=== PATIENT | male | born 1945 | race American Indian/Alaskan Native ===

== ENCOUNTER 2021-08-09 17:21 | Observation (INO) | payer MEDICARE ==
--- NOTE | 2021-08-09 17:56 | Emergency Department Report ---
ED Syncope HPI - General Stated Complaint: STEMI Time Seen by Provider: 08/09/21 17:37 Source: patient, EMS Exam Limitations: no limitations - History of Present Illness Initial Comments: 75-year-old male with no significant past medical history presents to the hospital via EMS after syncopal episode. Patient states he went to the bathroom, sat on the edge of the tub, became diaphoretic and lightheaded and fell out in the tub. Positive LOC. Patient was described as slightly sluggish according to family at the scene as per EMS. EMS reports that patient is oriented x4. Accu-Chek 136. Patient has felt fine all day but has not had much to eat. He only ate Halloween candy. He denies headache, chest pain, shortness of breath, infectious symptoms, nausea, vomiting, melena, hematochezia, diarrh ea, smoking, history of PE/DVT, cardiac history, or family history of CAD. Patient is immunized for Covid. patient felt fine today up until this episode. He complains of still feeling a little weak EMS felt that the field EKG represent ST elevation [place] therefore code STEMI called. Once they presented to physical EKG and repeat EKG in the ED showed signs of early repolarization without ST elevation [place] code STEMI was canceled. EKG and case was discussed with interventional Dr. Rasmussen. - Related Data Allergies/Adverse Reactions: Allergies No Known Allergies Allergy (Verified 08/09/21 17:48) ED Review of Systems ROS: Stated complaint: STEMI Other details as noted in HPI Comment: All other systems reviewed and negative ED Course Vital Signs 08/09/21 08/09/21 08/09/21 17:35 17:46 18:00 Pulse Rate 63 67 Respiratory 20 12 Rate Blood Pressure 146/72 146/72 146/72 O2 Sat by Pulse 96 95 Oximetry 08/09/21 08/09/21 08/09/21 18:07 18:15 18:31 Pulse Rate 75 66 Respiratory 14 12 14 Rate Blood Pressure 146/72 O2 Sat by Pulse 99 98 97 Oximetry 08/09/21 08/09/21 08/09/21 18:45 19:00 19:15 Pulse Rate 89 72 70 Respiratory 17 17 13 Rate Blood Pressure 146/72 146/72 O2 Sat by Pulse 97 98 99 Oximetry 08/09/21 08/09/21 08/09/21 19:31 19:45 20:01 Pulse Rate 60 60 60 Respiratory 13 13 13 Rate Blood Pressure O2 Sat by Pulse 97 97 97 Oximetry - Consultations Consultation #1: 08/09/[address] Rasmussen including EKG ED Medical Decision Making - Lab Data Result diagrams: 08/09/21 17:40 08/09/21 17:40 - EKG Data -: EKG Interpreted by Ga EKG shows normal: sinus rhythm, ST-T waves (No STEMI, early repol) - Radiology Data Radiology results: report reviewed CHEST 1 VIEW, 08/09/2021 5:58 PM CLINICAL INFORMATION/INDICATION: Syncope COMPARISON: None. FINDINGS: SUPPORT DEVICES: None. HEART: The cardiac silhouette is normal in size. LUNGS/PLEURA: The lungs are clear of focal airspace disease or significant pleural effusion. ADDITIONAL FINDINGS: No additional acute findings. IMPRESSION: 1. No evidence of acute cardiopulmonary process. - Medical Decision Making Differential includes but not limited to pulmonary embolism, arrhythmia, anemia, vasovagal, dehydration, infection 75-year-old male presents to the hospital with syncopal episode. Patient admits only in [facility] all day. Suspect volume depletion versus vasovagal as a possible cause. Labs unremarkable. EKG with signs of repolarization. Awaiting urine collection at disposition. Patient treated with IV fluids and inform nurse to feed patient. Nonfocal neuro exam. Patient still feels little weak. plan to admit for observation Critical Care Time: No Critical care attestation.: If time is entered above; I have spent that time in minutes in the direct care of this critically ill patient, excluding procedure time. ED Disposition Clinical Impression: Syncope Disposition: 09 ADMITTED INPATIENT Is pt being admited?: Yes Condition: Stable Instructions: Syncope (ED) Time of Disposition: 21:29 (Dr. Del Rio/hospitalist) - Assessment Assessment Interval: Baseline - Level of Consciousness 1a. Level of Consciousness: alert/keenly responsive - LOC Questions 1b. LOC Questions: answers both correctly - LOC Command 1c. LOC Commands: performs tasks correctly - Best Gaze 2. Best Gaze: normal - Visual 3. Visual: no visual loss - Facial Palsy 4. Facial Palsy: normal symmetrical movement - Motor Arm 5a. Motor Arm Left: no drift 5b. Motor Arm Right: no drift - Motor Leg 6a. Motor Leg Left: no drift 6b. Motor Leg Right: no drift - Limb Ataxia 7. Limb Ataxia: absent - Sensory 8. Sensory: normal - Best Language 9. Best Language: no aphasia - Dysarthria 10. Dysarthria: normal - Extinction and Inattention 11. Extinction/Inattention: no abnormality - Scoring Total Score: 0 Stroke Severity: No Stroke Symptoms
--- NOTE | 2021-08-09 18:06 | XRay Report ---
CHEST 1 VIEW, 08/09/2021 5:58 PM CLINICAL INFORMATION/INDICATION: Syncope COMPARISON: None. FINDINGS: SUPPORT DEVICES: None. HEART: The cardiac silhouette is normal in size. LUNGS/PLEURA: The lungs are clear of focal airspace disease or significant pleural effusion. ADDITIONAL FINDINGS: No additional acute findings. IMPRESSION: 1. No evidence of acute cardiopulmonary process. Signer Name: Radha Haas MD Signed: 08/09/2021 6:01 PM Workstation Name: [id number]
[2021-08-09 18:16] LABS: Basophils % (Auto) 0.8 % (0.0-1.8); Eosinophils # (Auto) 0.1 K/mm3 (0.0-0.4); Hematocrit 42.3 % (35.5-45.6); Lymphocytes # (Auto) 1.1 K/mm3 (1.2-5.4); Lymphocytes % (Auto) 24.8 % (13.4-35.0); Mean Corpuscular HGB Conc 33 % (32-34); Mean Corpuscular Volume 106 fl (84-94); Monocytes # (Auto) 0.5 K/mm3 (0.0-0.8); Monocytes % (Auto) 11.7 % (0.0-7.3); Platelet Count 200 K/mm3 (140-440); Red Blood Count 3.99 M/mm3 (3.65-5.03); Red Cell Distribution Width 12.6 % (13.2-15.2)
[2021-08-09 18:26] LABS: INR 0.96 (0.87-1.13)
[2021-08-09 19:19] LABS: Alanine Aminotransferase 28 units/L (7-56); Albumin 3.8 g/dL (3.9-5); BUN/Creatinine Ratio 13; Blood Urea Nitrogen 14 mg/dL (9-20); Hemolysis Index 4
--- NOTE | 2021-08-09 20:04 | Cat Scan Report ---
CT head/brain wo con INDICATION: Syncope. TECHNIQUE: Routine CT head. All CT scans at this location are performed using CT dose reduction for A MICHAEL by means of automated exposure control. COMPARISON: None. FINDINGS: Intracranial: Schwartz-white matter differentiation is maintained. No intracranial hemorrhage. No extra a xial collection. No hydrocephalus. No herniation. Periventricular and centrum semiovale white matter hypoattenuation most consistent with sequela of chronic microvascular disease. Sinuses: Paranasal sinuses and mastoid air cells are essentially clear. Orbits: Globes are intact. Calvarium: No acute fracture. IMPRESSION: 1. No acute intracranial abnormality. Signer Name: Kaleb Jimenez MD Signed: 08/09/2021 8:00 PM Workstation Name: [id number]
[2021-08-09] MEDS ORDERED: SODIUM CHLORIDE 0.9% 1000 ML 1,000 ML IV ONE (20:38)
[2021-08-09] MEDS ORDERED: ACETAMINOPHEN 325 MG TAB PO PRN (21:39)
[2021-08-09] MEDS ORDERED: MORPHINE 2 MG/1 ML INJ IV PRN (21:39)
[2021-08-09] MEDS ORDERED: traMADol 50 MG TAB PO PRN (21:39)
--- NOTE | 2021-08-09 21:47 | History and Physical Report ---
History of Present Illness Date of examination: 08/09/21 Date of admission: 08/09/21 Chief complaint: syncope History of present illness: 75-year-old male with no significant past medical history was brought emergency room because of syncope. Patient states he went to the bathroom, sat on the edge of the tub, became diaphoretic and lightheaded and fell out in the tub. Positive LOC. Patient was described as slightly sluggish according to family at the scene as per EMS. patient is oriented x3. Accu-Chek 136. Patient has felt fine all day but has not had much to eat. He only ate Halloween candy. He denies headache, chest pain, shortness of breath, infectious symptoms, nausea, vomiting, melena, hematochezia, diarrhea. Patient is immunized for Covid. patient felt fine today up until this episode. He complains of still feeling a little weak EMS felt that the field EKG represent ST elevation [place] difficult STEMI called. Once they presented to physical EKG and repeat EKG in the ED showed signs of early repole without ST elevation [place] code STEMI was canceled. EKG and case was discussed with interventional Dr. Rasmussen. Initial cardiac enzyme is negative. We will put the patient in telemetry. We will monitor the patient closely. Consult cardiology for evaluation. Medications and Allergies Allergies Allergy/AdvReac Type Severity Reaction Status Date / Time No Known Allergies Allergy Verified 08/09/21 17:48 Active Meds: Active Medications Sodium Chloride (Nacl 0.9% 1000 Ml) 1,000 mls @ 250 mls/hr IV ONCE ONE Stop: 08/10/21 00:37 Review of Systems All systems: negative Cardiovascular: syncope Exam - Constitutional Vitals: Temp Pulse Resp BP Pulse Ox 60 13 146/72 97 08/09/21 20:01 08/09/21 20:01 08/09/21 19:00 08/09/21 20:01 General appearance: Present: no acute distress, well-nourished - EENT Eyes: Present: PERRL ENT: hearing intact, clear oral mucosa - Neck Neck: Present: supple, normal ROM - Respiratory Respiratory effort: normal Respiratory: bilateral: diminished - Cardiovascular Heart Sounds: Present: S1 & S2. Absent: rub, click - Extremities Extremities: pulses symmetrical, No edema Peripheral Pulses: within normal limits - Abdominal General gastrointestinal: Present: soft, non-tender, non-distended, normal bowel sounds Male genitourinary: Present: normal - Integumentary Integumentary: Present: clear, warm, dry - Musculoskeletal Musculoskeletal: gait normal, strength equal bilaterally - Psychiatric Psychiatric: appropriate mood/affect, intact judgment & insight - Neurologic Neurologic: CNII-XII intact, moves all extremities HEART Score - HEART Score Troponin: Troponin T 0.019 ng/mL (0.00-0.029) 08/09/21 17:40 Results - Labs CBC & Chem 7: 08/09/21 17:40 08/09/21 17:40 Labs: Laboratory Last Values WBC 4.3 K/mm3 (4.5-11.0) L 08/09/21 17:40 RBC 3.99 M/mm3 (3.65-5.03) 08/09/21 17:40 Hgb 14.0 gm/dl (11.8-15.2) 08/09/21 17:40 Hct 42.3 % (35.5-45.6) 08/09/21 17:40 MCV 106 fl (84-94) H 08/09/21 17:40 MCH 35 pg (28-32) H 08/09/21 17:40 MCHC 33 % (32-34) 08/09/21 17:40 RDW 12.6 % (13.2-15.2) L 08/09/21 17:40 Plt Count 200 K/mm3 (140-440) 08/09/21 17:40 Lymph % (Auto) 24.8 % (13.4-35.0) 08/09/21 17:40 [place] % (Auto) 11.7 % (0.0-7.3) H 08/09/21 17:40 Eos % (Auto) 2.0 % (0.0-4.3) 08/09/21 17:40 Baso % (Auto) 0.8 % (0.0-1.8) 08/09/21 17:40 Lymph # (Auto) 1.1 K/mm3 (1.2-5.4) L 08/09/21 17:40 [place] # (Auto) 0.5 K/mm3 (0.0-0.8) 08/09/21 17:40 Eos # (Auto) 0.1 K/mm3 (0.0-0.4) 08/09/21 17:40 Baso # (Auto) 0.0 K/mm3 (0.0-0.1) 08/09/21 17:40 Seg Neutrophils % 60.7 % (40.0-70.0) 08/09/21 17:40 Seg Neutrophils # 2.6 K/mm3 (1.8-7.7) 08/09/21 17:40 PT 13.9 Sec. (12.2-14.9) 08/09/21 17:40 INR 0.96 (0.87-1.13) 08/09/21 17:40 Sodium 139 mmol/L (137-145) 08/09/21 17:40 Potassium 3.8 mmol/L (3.6-5.0) 08/09/21 17:40 Chloride 103.8 mmol/L (98-107) 08/09/21 17:40 Carbon Dioxide 23 mmol/L (22-30) 08/09/21 17:40 Anion Gap 16 mmol/L 08/09/21 17:40 BUN 14 mg/dL (9-20) 08/09/21 17:40 Creatinine 1.1 mg/dL (0.8-1.3) 08/09/21 17:40 Estimated GFR > 60 ml/min 08/09/21 17:40 BUN/Creatinine Ratio 13 % 08/09/21 17:40 Glucose 124 mg/dL (75-100) H 08/09/21 17:40 Calcium 9.0 mg/dL (8.4-10.2) 08/09/21 17:40 Magnesium 2.10 mg/dL (1.7-2.3) 08/09/21 17:40 Total Bilirubin 0.90 mg/dL (0.1-1.2) 08/09/21 17:40 AST 34 units/L (5-40) 08/09/21 17:40 ALT 28 units/L (7-56) 08/09/21 17:40 Alkaline Phosphatase 79 units/L (35-129) 08/09/21 17:40 Troponin T 0.019 ng/mL (0.00-0.029) 08/09/21 17:40 Total Protein 8.0 g/dL (6.3-8.2) 08/09/21 17:40 Albumin 3.8 g/dL (3.9-5) L 08/09/21 17:40 Albumin/Globulin Ratio 0.9 % 08/09/21 17:40 Plasma/Serum Alcohol < 0.01 % (0-0.07) 08/09/21 17:40 - Imaging and Cardiology Chest x-ray: report reviewed CT Scan - head: report reviewed Assessment and Plan VTE prophylaxis?: Mechanical Plan of care discussed with patient/family: Yes - Patient Problems (1) Syncope Current Visit: Yes Status: Acute Plan to address problem: Admit the patient to the medical telemetry. Aspirin 81 mg p.o. daily. Lipitor 40 mg p.o. daily. Normal saline at the rate of 100 cc/h. We will do the serial cardiac enzymes. Echocardiogram. Cardiology consult. (2) Dehydration Current Visit: Yes Status: Acute Plan to address problem: Normal saline at the rate of 100 cc/h. Recheck BMP in the morning. (3) DVT prophylaxis Current Visit: Yes Status: Acute Plan to address problem: Heparin 5000 units subcu every 8 hours for DVT prophylaxis. Protonix 40 mg p.o. daily for GI prophylaxis. Patient is a full code
[2021-08-09 22:21] LABS: Basophils % (Auto) 0.6 % (0.0-1.8); Eosinophils % (Auto) 0.4 % (0.0-4.3); Hematocrit 44.6 % (35.5-45.6); Hemoglobin 14.8 gm/dl (11.8-15.2); Lymphocytes # (Auto) 1.5 K/mm3 (1.2-5.4); Lymphocytes % (Auto) 21.7 % (13.4-35.0); Mean Corpuscular HGB Conc 33 % (32-34); Mean Corpuscular Volume 105 fl (84-94); Monocytes # (Auto) 0.4 K/mm3 (0.0-0.8); Monocytes % (Auto) 6.6 % (0.0-7.3); Platelet Count 238 K/mm3 (140-440); Red Blood Count 4.23 M/mm3 (3.65-5.03); Red Cell Distribution Width 12.6 % (13.2-15.2)
[2021-08-09 22:32] LABS: BUN/Creatinine Ratio 13; Blood Urea Nitrogen 12 mg/dL (9-20); Calcium 9.2 mg/dL (8.4-10.2); Hemolysis Index 53
[2021-08-10 08:04] LABS: Bilirubin,Urine NEG (Negative); Blood,Urine NEG (Negative); Color,Urine Yellow (Yellow); Protein,Urine <15 mg/dL mg/dL (Negative)
[2021-08-10 08:13] LABS: Amphetamine Screen,Urine Negative; Benzodiazepines Screen,Urine Negative; Cannabinoid Screen,Urine Negative; Cocaine Screen,Urine Negative; Methadone Screen,Urine Negative; Opiate Screen,Urine Negative
[2021-08-10] MEDS: SODIUM CHLORIDE 0.9% 1000 ML 1,000 ML IV SCH ×2 (09:09→17:26)
--- NOTE | 2021-08-10 09:10 | Electrocardiograph Report ---
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
--- NOTE | 2021-08-10 09:14 | Electrocardiograph Report ---
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
[2021-08-10] MEDS: ASPIRIN 81 MG TAB CHEW PO SCH (10:59)
[2021-08-10] MEDS: PANTOPRAZOLE 40 MG TAB PO SCH (10:59)
--- NOTE | 2021-08-10 12:51 | Consultation ---
History of Present Illness Consult date: 08/10/21 Consult reason: syncope History of present illness: 75-year old male with no prior cardiac history, admitted with syncope. He describes feeling dizzy, diaphoretic, and nauseated just prior to passing out. The patient reports a similar episode 2 years ago. At that time he was hospitalized at [place] and workup was negative. He denies chest pain and unusual shortness of breath. No report of palpitation. Chest x-ray is negative. Head CT scan reports no acute abnormality. An ECG is normal sinus rhythm. No acute ST or T wave abnormality. Cardiology consultation has been requested for further evaluation. Past History Past Medical History: No medical history Medications and Allergies Allergies Allergy/AdvReac Type Severity Reaction Status Date / Time No Known Allergies Allergy Verified 08/09/21 17:48 Home Medications Medication Instructions Recorded Confirmed Last Taken Type Acetaminophen [Tylenol] 500 - 1,000 mg PO PRN PRN 08/10/21 08/10/21 08/08/21 History 500 MG Aspirin 325 - 650 mg PO QWEEK PRN 08/10/21 08/10/21 08/08/21 History 325 MG Active Meds: Active Medications Acetaminophen (Acetaminophen 325 Mg Tab) 650 mg PO Q6H PRN PRN Reason: Pain, Mild (1-3) Aspirin (Aspirin 81 Mg Tab Chew) 81 mg PO QDAY [facility] Last Admin: 08/10/21 10:59 Dose: 81 mg Documented by: Atorvastatin Calcium (Atorvastatin 40 Mg Tab) 40 mg PO QHS [facility] Last Admin: 08/09/21 23:10 Dose: 40 mg Documented by: Sodium Chloride (Nacl 0.9% 1000 Ml) 1,000 mls @ 100 mls/hr IV DIRECT [facility] Last Admin: 08/10/21 09:09 Dose: 100 mls/hr Documented by: Morphine Sulfate (Morphine 2 Mg/1 Ml Inj) 2 mg IV Q5MIN PRN PRN Reason: Chest Pain unrelieved by NTG Pantoprazole Sodium (Pantoprazole 40 Mg Tab) 40 mg PO QDAY [facility] Last Admin: 08/10/21 10:59 Dose: 40 mg Documented by: Sodium Chloride (Sodium Chloride 0.9% 10 Ml Flush Syringe) 10 ml IV PRN PRN PRN Reason: LINE FLUSH Last Admin: 08/10/21 09:09 Dose: 10 ml Documented by: Tramadol HCl (Tramadol 50 Mg Tab) 50 mg PO Q6H PRN PRN Reason: Pain, Moderate (4-6) Review of Systems Cardiovascular: syncope, no chest pain, no palpitations, no edema, no shortness of breath Physical Examination Vital Signs BP 146/72 08/09/21 17:35 General appearance: no acute distress HEENT: Positive: PERRL Neck: Positive: trachea midline Cardiac: Positive: Reg Rate and Rhythm Lungs: Positive: Normal Breath Sounds Neuro: Positive: Grossly Intact Extremities: Absent: edema Results 08/09/21 21:47 08/09/21 21:47 Cardiac Enzymes 08/09/21 Range/Units 17:40 AST 34 (5-40) units/L Coagulation 08/09/21 Range/Units 17:40 PT 13.9 (12.2-14.9) Sec. INR 0.96 (0.87-1.13) CBC 08/09/21 08/09/21 Range/Units 17:40 21:47 WBC 4.3 L 6.7 (4.5-11.0) K/mm3 RBC 3.99 4.23 (3.65-5.03) M/mm3 Hgb 14.0 14.8 (11.8-15.2) gm/dl Hct 42.3 44.6 (35.5-45.6) % Plt Count 200 238 (140-440) K/mm3 Lymph # (Auto) 1.1 L 1.5 (1.2-5.4) K/mm3 [place] # (Auto) 0.5 0.4 (0.0-0.8) K/mm3 Eos # (Auto) 0.1 0.0 (0.0-0.4) K/mm3 Baso # (Auto) 0.0 0.0 (0.0-0.1) K/mm3 Comprehensive Metabolic Panel 08/09/21 08/09/21 Range/Units 17:40 21:47 Sodium 139 139 (137-145) mmol/L Potassium 3.8 4.2 (3.6-5.0) mmol/L Chloride 103.8 103.4 (98-107) mmol/L Carbon Dioxide 23 20 L (22-30) mmol/L BUN 14 12 (9-20) mg/dL Creatinine 1.1 0.9 (0.8-1.3) mg/dL Glucose 124 H 100 (75-100) mg/dL Calcium 9.0 9.2 (8.4-10.2) mg/dL AST 34 (5-40) units/L ALT 28 (7-56) units/L Alkaline Phosphatase 79 (35-129) units/L Total Protein 8.0 (6.3-8.2) g/dL Albumin 3.8 L (3.9-5) g/dL Assessment and Plan - Patient Problems (1) Syncope Current Visit: Yes Status: Acute Plan to address problem: Syncope likely vasovagal Echocardiogram as been ordered for LVEF assessment. Pre-discharge lexiscan thallium stress test will be done for cardiac evaluation.
--- NOTE | 2021-08-10 15:44 | Progress Note ---
Assessment and Plan Assessment and plan: Patient is 75-year-old male with no significant past medical history who presented with likely vasovagal syncope after becoming diaphoretic and lightheaded and fainting into his bathtub. #Vasovagal syncope -Continue telemetry -Discontinue normal saline at 100 cc/hour -Troponins negative -Cardiology consulted; appreciate recs -Pending TTE. Pending possible Lexiscan in a.m. #Dehydration -Status post IV fluid resuscitation with normal saline at 100 cc/hour. -Resumed diet. -Continue to monitor #Discharge planning -If TTE and possible Lexiscan are negative, patient will be discharging home tomorrow. Patient explained that his daughter could pick him up. Disposition Plan: Pending discharge tomorrow. Total Time Spent with Patient (Minutes): 40 History Interval history: No acute events overnight. Hospitalist Physical - Constitutional Vitals: Temp Pulse Resp BP Pulse Ox 97.7 F 76 16 135/73 99 08/10/21 11:49 08/10/21 08:00 08/10/21 11:49 08/10/21 11:49 08/10/21 10:30 General appearance: Present: no acute distress, well-nourished - EENT Eyes: Present: PERRL, EOM intact ENT: hearing intact, clear oral mucosa, dentition normal - Neck Neck: Present: supple, normal ROM - Respiratory Respiratory effort: normal - Cardiovascular Rhythm: regular Heart Sounds: Present: S1 & S2 - Extremities Extremities: no ischemia, pulses intact, pulses symmetrical, No edema, normal temperature, normal color Peripheral Pulses: within normal limits - Abdominal General gastrointestinal: soft, non-tender, non-distended, normal bowel sounds - Integumentary Integumentary: Present: clear, warm, dry - Psychiatric Psychiatric: appropriate mood/affect, intact judgment & insight, memory intact, cooperative - Neurologic Neurologic: CNII-XII intact, moves all extremities - Allied Health Allied health notes reviewed: nursing HEART Score - HEART Score Troponin: Troponin T 0.018 ng/mL (0.00-0.029) 08/10/21 04:13 Results - Labs CBC & Chem 7: 08/09/21 21:47 08/09/21 21:47 Labs: Laboratory Last Values WBC 6.7 K/mm3 (4.5-11.0) 08/09/21 21:47 RBC 4.23 M/mm3 (3.65-5.03) 08/09/21 21:47 Hgb 14.8 gm/dl (11.8-15.2) 08/09/21 21:47 Hct 44.6 % (35.5-45.6) 08/09/21 21:47 MCV 105 fl (84-94) H 08/09/21 21:47 MCH 35 pg (28-32) H 08/09/21 21:47 MCHC 33 % (32-34) 08/09/21 21:47 RDW 12.6 % (13.2-15.2) L 08/09/21 21:47 Plt Count 238 K/mm3 (140-440) 08/09/21 21:47 Lymph % (Auto) 21.7 % (13.4-35.0) 08/09/21 21:47 [place] % (Auto) 6.6 % (0.0-7.3) 08/09/21 21:47 Eos % (Auto) 0.4 % (0.0-4.3) 08/09/21 21:47 Baso % (Auto) 0.6 % (0.0-1.8) 08/09/21 21:47 Lymph # (Auto) 1.5 K/mm3 (1.2-5.4) 08/09/21 21:47 [place] # (Auto) 0.4 K/mm3 (0.0-0.8) 08/09/21 21:47 Eos # (Auto) 0.0 K/mm3 (0.0-0.4) 08/09/21 21:47 Baso # (Auto) 0.0 K/mm3 (0.0-0.1) 08/09/21 21:47 Seg Neutrophils % 70.7 % (40.0-70.0) H 08/09/21 21:47 Seg Neutrophils # 4.8 K/mm3 (1.8-7.7) 08/09/21 21:47 PT 13.9 Sec. (12.2-14.9) 08/09/21 17:40 INR 0.96 (0.87-1.13) 08/09/21 17:40 Sodium 139 mmol/L (137-145) 08/09/21 21:47 Potassium 4.2 mmol/L (3.6-5.0) 08/09/21 21:47 Chloride 103.4 mmol/L (98-107) 08/09/21 21:47 Carbon Dioxide 20 mmol/L (22-30) L 08/09/21 21:47 Anion Gap 20 mmol/L 08/09/21 21:47 BUN 12 mg/dL (9-20) 08/09/21 21:47 Creatinine 0.9 mg/dL (0.8-1.3) 08/09/21 21:47 Estimated GFR > 60 ml/min 08/09/21 21:47 BUN/Creatinine Ratio 13 % 08/09/21 21:47 Glucose 100 mg/dL (75-100) 08/09/21 21:47 Calcium 9.2 mg/dL (8.4-10.2) 08/09/21 21:47 Magnesium 2.10 mg/dL (1.7-2.3) 08/09/21 17:40 Total Bilirubin 0.90 mg/dL (0.1-1.2) 08/09/21 17:40 AST 34 units/L (5-40) 08/09/21 17:40 ALT 28 units/L (7-56) 08/09/21 17:40 Alkaline Phosphatase 79 units/L (35-129) 08/09/21 17:40 Troponin T 0.018 ng/mL (0.00-0.029) 08/10/21 04:13 Total Protein 8.0 g/dL (6.3-8.2) 08/09/21 17:40 Albumin 3.8 g/dL (3.9-5) L 08/09/21 17:40 Albumin/Globulin Ratio 0.9 % 08/09/21 17:40 Urine Color Yellow (Yellow) 08/10/21 07:41 Urine Turbidity Clear (Clear) 08/10/21 07:41 Urine pH 7.0 (5.0-7.0) 08/10/21 07:41 Ur Specific [place] 1.013 (1.003-1.030) 08/10/21 07:41 Urine Protein <15 mg/dl mg/dL (Negative) 08/10/21 07:41 Urine Glucose (UA) Neg mg/dL (Negative) 08/10/21 07:41 Urine Ketones Neg mg/dL (Negative) 08/10/21 07:41 Urine Blood Neg (Negative) 08/10/21 07:41 Urine Nitrite Neg (Negative) 08/10/21 07:41 Urine Bilirubin Neg (Negative) 08/10/21 07:41 Urine Urobilinogen 4.0 mg/dL (<2.0) 08/10/21 07:41 Ur Leukocyte Esterase Neg (Negative) 08/10/21 07:41 Urine WBC (Auto) 2.0 /HPF (0.0-6.0) 08/10/21 07:41 Urine RBC (Auto) 2.0 /HPF (0.0-6.0) 08/10/21 07:41 U Epithel Cells (Auto) 1.0 /HPF (0-13.0) 08/10/21 07:41 Urine Opiates Screen Negative 08/10/21 07:41 Urine Methadone Screen Negative 08/10/21 07:41 Ur Barbiturates Screen Negative 08/10/21 07:41 Ur Phencyclidine Scrn Negative 08/10/21 07:41 Ur Amphetamines Screen Negative 08/10/21 07:41 U Benzodiazepines Scrn Negative 08/10/21 07:41 Urine Cocaine Screen Negative 08/10/21 07:41 U Marijuana (THC) Screen Negative 08/10/21 07:41 Drugs of Abuse Note Disclamer 08/10/21 07:41 Plasma/Serum Alcohol < 0.01 % (0-0.07) 08/09/21 17:40 Active Medications - Current Medications Current Medications: Generic Name Dose Route Start Last Admin Trade Name Freq PRN Reason Stop Dose Admin Acetaminophen 650 mg 08/09/21 21:39 Acetaminophen 325 Mg Tab PO Q6H PRN Pain, Mild (1-3) Aspirin 81 mg 08/10/21 10:00 08/10/21 10:59 Aspirin 81 Mg Tab Chew PO 81 mg QDAY GUILLAUME Administration Atorvastatin Calcium 40 mg 08/09/21 22:00 08/09/21 23:10 Atorvastatin 40 Mg Tab PO 40 mg QHS GUILLAUME Administration Sodium Chloride 1,000 mls @ 100 mls/hr 08/09/21 21:45 08/10/21 09:09 Nacl 0.9% 1000 Ml IV 100 mls/hr DIRECT GUILLAUME Administration Morphine Sulfate 2 mg 08/09/21 21:39 Morphine 2 Mg/1 Ml Inj IV Q5MIN PRN Chest Pain unrelieved by NTG Pantoprazole Sodium 40 mg 08/10/21 10:00 08/10/21 10:59 Pantoprazole 40 Mg Tab PO 40 mg QDAY GUILLAUME Administration Sodium Chloride 10 ml 08/09/21 21:39 08/10/21 09:09 Sodium Chloride 0.9% 10 Ml Flush Syringe IV 10 ml PRN PRN Administration LINE FLUSH Tramadol HCl 50 mg 08/09/21 21:39 Tramadol 50 Mg Tab PO Q6H PRN Pain, Moderate (4-6)
[2021-08-11] MEDS: SODIUM CHLORIDE 0.9% 1000 ML 1,000 ML IV SCH (01:56)
[2021-08-11 04:07] LABS: Basophils % (Auto) 0.7 % (0.0-1.8); Eosinophils # (Auto) 0.2 K/mm3 (0.0-0.4); Eosinophils % (Auto) 3.1 % (0.0-4.3); Hematocrit 40.3 % (35.5-45.6); Hemoglobin 13.5 gm/dl (11.8-15.2); Lymphocytes % (Auto) 41.2 % (13.4-35.0); Mean Corpuscular HGB Conc 34 % (32-34); Mean Corpuscular Volume 106 fl (84-94); Monocytes # (Auto) 0.5 K/mm3 (0.0-0.8); Monocytes % (Auto) 9.8 % (0.0-7.3); Platelet Count 207 K/mm3 (140-440); Red Blood Count 3.82 M/mm3 (3.65-5.03); Red Cell Distribution Width 12.6 % (13.2-15.2)
[2021-08-11 04:24] LABS: BUN/Creatinine Ratio 10; Blood Urea Nitrogen 10 mg/dL (9-20); Calcium 8.6 mg/dL (8.4-10.2); Hemolysis Index 5
[2021-08-11] MEDS ORDERED: REGADENOSON 0.4 MG/5 ML INJ IV ONE ×2 (06:40→08:48)
--- NOTE | 2021-08-11 08:37 | Electrocardiograph Report ---
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
[2021-08-11 10:30] VITALS: BP 137/75
[2021-08-11] MEDS: PANTOPRAZOLE 40 MG TAB PO SCH (12:34)
[2021-08-11] MEDS: ASPIRIN 81 MG TAB CHEW PO SCH (12:34)
--- NOTE | 2021-08-11 13:22 | Event Note ---
Date: 08/11/21 Cardiac tests done today are completed. The Lexiscan thallium stress test was normal, no perfusion defects. Echocardiogram showed normal left ventricular systolic function with ejection fraction 60%, no significant valvular lesions. Patient is stable for cardiac discharge, we will sign off.
--- NOTE | 2021-08-11 13:27 | Nuclear Medicine Report ---
APPROVED REPORT Exam: Nuclear Stress Test Indication: Chest pain Ht: 5 ft 5 in Wt: 178 lbs BSA: 1.88 m2 BMI: 29.61 Rhythm: NSR Stress Test Details Stress Test: Pharmacologic stress testing performed using 0.4 mg of regadenoson per 5 mL given IV over 10 seconds. Reason for pharmacologic stress test: physical limitation. HR Resting HR: 71 bpm Max HR Achieved: 111 bpm Max Heart Rate (APMHR): 147 bpm Target HR (85% APMHR): 124 bpm % of APMHR: 75 Recovery HR: 85 bpm HR response to stress: Normal HR response to stress BP Resting BP: 135/73 mmHg Max BP: 181/95 mmHg Recovery BP: 137/75 mmHg BP response to stress: Normal blood pressure response to stress. ECG Resting ECG: Sinus Rhythm Stress ECG: Sinus Tachycardia ST Change: None Arrhythmia: Occasional APC's Recovery ECG: Sinus Rhythm Recovery ST Change: None Recovery Arrhythmia: None Clinical Reason for Termination: Completed protocol Stress Symptoms: None Stress ECG Conclusion No chest pain and no ST changes of ischemia with pharmacologic stress. Myocardial perfusion images are pending. NM EXAM: Myocardial Perfusion REST/STRESS Resting Data Rest SPECT myocardial perfusion imaging was performed in supine position 45 minutes following the intravenous injection of 10 mCi of Tc-99m Myoview. Time of rest injection: 0700 Pharmacologic Stress Pharmacologic stress test was performed by injecting Regadenoson 0.4 mg IV push followed by the intravenous injection of 28 mCi of Tc-99m Tetrofosmin. Time of stress injection: 09:50:26 Gated Stress SPECT was performed 30 minutes after stress injection. Study Data TID = 1.11. Perfusion Wall Motion Normal left ventricular size and function with no regional wall motion abnormalities. Nuclear Conclusion ECG Findings: negative for ischemia Clinical Findings: negative for ischemia Nuclear Findings: negative for ischemia Left Ventricular Function: normal Risk Study: low Myocardial perfusion images are normal on both the stress and rest studies, no defects identified. There is normal left ventricular systolic function, ejection fraction 68%. Normal study. Conclusion No chest pain and no ST changes of ischemia with pharmacologic stress. Myocardial perfusion images are pending.
--- NOTE | 2021-08-11 15:10 | Discharge Summary ---
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 Procedures: TTE; Lexiscan stress test Hospital course: Patient is a 75-year-old male with no significant past medical history who presented with vasovagal syncope after falling into the bathtub. The patient admitted to limited p.o. intake and staying up all night prior to the event. Due to concerns for possible STEMI during the EMS transit, cardiology was consulted in the ED. Troponins were negative, and repeat EKG was negative for possible STEMI. Cardiology performed TTE and Lexiscan stress test that were found to be negative. Patient is discharging home. Disposition: HOME / SELF CARE / HOMELESS Final Discharge Diagnosis (Prints w/discharge instructions): Vasovagal syncope Time spent for discharge: 40 minutes Core Measure Documentation - Palliative Care Palliative Care/ Comfort Measures: Not Applicable - Core Measures Any of the following diagnoses?: none - VTE Discharge Requirements Deep Vein Thrombosis/Pulmonary Embolism Present on Admission: No Has pt received <5 days of overlap therapy or INR<2.0: No (Not indicated) Anticoagulant overlap therapy prescribed at discharge: No Contraindication No Overlap Therapy order at DC: Not Indicated - Acute [place] Discharge Requirements Aspirin at discharge: No Reason for no aspirin on DC: Medical contraindication (Not indicated) SOHEILA/ARB for LVSD if EF <40%: Not Applicable Reason for no SOHEILA/ARB: Medical contraindication (Not indicated) Beta micheal at discharge: No Reason for no beta micheal on DC: Medical contraindication (Not indicated) Statin for LDL = or >100 mg/dl on DC: No Reason for no statin on DC: Medical contraindication (Not indicated) - Heart Failure Discharge Requirements SOHEILA/ARB for LVSD if EF <40%: Not Applicable Reason for no SOHEILA/ARB: Medical contraindication (Not indicated) Beta micheal at discharge: No Reason for no beta micheal on DC: Medical contraindication - Stroke Discharge Requirements Statin for LDL = or >70 mg/dl on DC: Not Applicable (Not indicated) Reason for no statin on DC: Not Indicated Anticoag for atrial fib/atrial flutter: Not Applicable Reason for no anticoag for AF/F on DC: Not Indicated Antithrombotic for ischemic stroke: No Reason for no antithrombotic on DC: Not Indicated Exam - Constitutional Vitals: Temp Pulse Resp BP Pulse Ox 97.2 F L 68 18 137/75 97 08/11/21 07:47 08/11/21 13:51 08/11/21 07:47 08/11/21 09:53 08/11/21 12:00 General appearance: Present: no acute distress, well-nourished - EENT Eyes: Present: PERRL, EOM intact ENT: hearing intact, clear oral mucosa, dentition normal - Neck Neck: Present: supple, normal ROM - Respiratory Respiratory effort: normal - Cardiovascular Rhythm: regular Heart Sounds: Present: S1 & S2 - Extremities Extremities: no ischemia, pulses intact, pulses symmetrical, No edema, normal temperature, normal color Peripheral Pulses: within normal limits - Abdominal General gastrointestinal: Present: soft, non-tender, non-distended, normal bowel sounds Male genitourinary: Present: deferred - Rectal Rectal Exam: deferred - Integumentary Integumentary: Present: clear, warm, dry - Musculoskeletal Musculoskeletal: strength equal bilaterally - Psychiatric Psychiatric: appropriate mood/affect, intact judgment & insight, memory intact, cooperative - Neurologic Neurologic: CNII-XII intact, moves all extremities - Allied Health Allied health notes reviewed: nursing Plan Care Plan Goals: Patient discharging home. Assessment: Patient presented with vasovagal syncope. Cardiology was consulted in the ED. Patient underwent echocardiogram and stress test that were found to be within normal limits. Patient discharging home. Follow up with: PRIMARY CARE, [Primary Care Provider] - 10 Days Prescriptions: AtorvaSTATin [Lipitor] 40 mg PO QHS #30 tablet Aspirin [Aspirin BABY CHEW TAB] 81 mg PO QDAY #30 tab.chew
== END 2021-08-11 17:40 | disposition home or self-care (01) ==
LOC: ED 17:21 → 4A 08-10 01:38 → INTOOBSV 08-10 15:38 → OBSVTOIN 08-10 15:38
PROVIDERS: ADMIT Hospitalist; ATTEND Student in an Organized Health Care Education/Training Program
DX: R55 Syncope and collapse (principal); E86.0 Dehydration; R29.818 Other symptoms and signs involving the nervous system; Z79.82 Long term (current) use of aspirin; Z79.899 Other long term (current) drug therapy
CPT/HCPCS: 36415; 70450; 71045; 78452; 80048; 80053; 80307; 81001; 83735; 84100; 84484; 85025; 85610; 93005; 93017; 93306; 96360; 96361; 97162; 99285; A9270; A9502; G0378; J2785; J7030; 80320; G0480